=== PATIENT | male | born 1960 | race Asian ===

== ENCOUNTER 2016-07-25 13:22 | Outpatient (CLI) | payer OTHER | END 2016-07-25 13:23 | disposition home or self-care (01) | DX: G47.33 Obstructive sleep apnea (adult) (pediatric) (principal) ==

== ENCOUNTER 2016-09-06 15:22 | Outpatient (CLI) | payer OTHER | END 2016-09-06 15:23 | disposition home or self-care (01) | LOC: SC 15:22 | PROVIDERS: ATTEND Internal Medicine Pulmonary Disease | DX: G47.33 Obstructive sleep apnea (adult) (pediatric) (principal) | CPT/HCPCS: 99212; 99213 ==

== ENCOUNTER 2021-10-17 16:50 | Emergency (ER) | payer OTHER ==
[2021-10-17 17:01] VITALS: BP 148/92
[2021-10-17] MEDS ORDERED: COLCHICINE 0.6 MG TABLET PO STA (17:08)
[2021-10-17] MEDS ORDERED: oxyCODONE/ACET 5/325 Prepack 4 PO STA (17:08)
[2021-10-17] MEDS ORDERED: predniSONE 20 MG TABLET PO STA (17:08)
--- NOTE | 2021-10-17 17:14 | ED Physician Documentation ---
PD HPI LOWER EXT INJURY - Stated complaint Stated Complaint: GOUT - Chief complaint Chief Complaint: Ext Problem - History obtained from History obtained from: Patient (61-year-old gentleman with history of gout has had an ongoing flare of gout in his left first MTP the last few days despite taking colchicine. He is on long-term allopurinol therapy. No fevers.) Review of Systems Constitutional: reports: Reviewed and negative Eyes: reports: Reviewed and negative Respiratory: reports: Reviewed and negative PD PAST MEDICAL HISTORY - Present Medications Home Medications: Ambulatory Orders Medication Instructions Recorded Confirmed Colchicine [Colcrys] 0.6 mg PO BID #6 tablet 10/17/21 Oxycodone HCl/Acetaminophen 1 - 2 each PO Q6H PRN #14 tablet 10/17/21 [Percocet 5-325 mg Tablet] predniSONE [Deltasone] 20 mg PO [id number] #21 tab 10/17/21 - Allergies Allergies/Adverse Reactions: Allergies Allergy/AdvReac Type Severity Reaction Status Date / Time aspirin AdvReac Edema Verified 10/17/21 17:02 ibuprofen AdvReac Edema Verified 10/17/21 17:02 PD ED PE NORMAL - Vitals Vital signs reviewed: Yes - General General: Alert and oriented X 3, No acute distress - Extremities Extremities: Other (Redness and warmth at the left first MTP consistent with gout. No severe pain with passive range of motion.) - Neuro Neuro: Alert and oriented X 3, Normal speech Results - Vitals Vitals: Vital Signs - 24 hr 10/17/21 16:57 Temperature 36.9 C Heart Rate 86 Respiratory 16 Rate Blood Pressure 148/92 H O2 Saturation 97 Oxygen O2 Source Room air Departure - Departure Disposition: Home, Self Care Clinical Impression: Gout Qualifiers: Gout site: foot Gout etiology: unspecified cause Chronicity: acute Laterality: left Qualified Code(s): M10.9 - Gout, unspecified Condition: Good Record reviewed to determine appropriate education?: Yes Instructions: ED Arthritis Gout Prescriptions: Colchicine [Colcrys] 0.6 mg PO BID #6 tablet predniSONE [Deltasone] 20 mg PO [id number] #21 tab Oxycodone HCl/Acetaminophen [Percocet 5-325 mg Tablet] 1 - 2 each PO Q6H PRN #14 tablet PRN Reason: pain Comments: I sent your prescription electronically [place] the [facility] [place] Keep eye on your blood sugars, the prednisone may make your blood sugars go up and if that happens probably not worth it and can be stopped. Return for new or worsening symptoms. Follow-up with your doctor in a week for recheck.
== END 2021-10-17 17:35 | disposition home or self-care (01) ==
LOC: ED 16:50
DX: M10.9 Gout, unspecified (principal)
CPT/HCPCS: 99283; A9270; J7512

== ENCOUNTER 2022-01-25 09:29 | Emergency (ER) | payer OTHER ==
[2022-01-25 09:36] VITALS: BP 138/96
--- NOTE | 2022-01-25 10:09 | ED Physician Documentation ---
PD HPI LOWER EXT INJURY - Stated complaint Stated Complaint: L FOOT PX - Chief complaint Chief Complaint: Ext Problem - History obtained from History obtained from: Patient - History of Present Illness PD HPI LOW EXT INJURY LOCATION: Left, Foot, Toe Type of injury: Other (feels like gout flare up.). No: Fall, Twist, Blunt / blow Where injury occurred: Home Timing - onset: How many days ago (3-4) Timing - duration: Days Timing - details: Gradual onset, Still present Worsened by: Moving, Palpating Associated symptoms: Swelling, Discolored (red) Similar symptoms before: Diagnosis (feels like gout flares he has had. Not improved with colchicine the past few days. Had improvement with prednisone with flare up in September.) Review of Systems Constitutional: denies: Fever, Chills Nose: denies: Rhinorrhea / runny nose, Congestion Throat: denies: Sore throat Respiratory: denies: Cough GI: denies: Abdominal Pain, Nausea, Vomiting, Diarrhea Skin: reports: Rash (redness with swelling left great toe mtp and now also 3rd toe mtp dorsally.) Neurologic: denies: Focal weakness, Numbness PD PAST MEDICAL HISTORY - Past Medical History Past Medical History: Yes Cardiovascular: Hypertension, High cholesterol Respiratory: None Neuro: None Endocrine/Autoimmune: Type 2 diabetes GI: None : None HEENT: None Psych: None Musculoskeletal: Gout, Chronic back pain Derm: None - Past Surgical History Past Surgical History: No - Present Medications Home Medications: Ambulatory Orders Medication Instructions Recorded Confirmed Colchicine [Colcrys] 0.6 mg PO BID #6 tablet 10/17/21 01/25/22 Oxycodone HCl/Acetaminophen 1 - 2 each PO Q6H PRN #14 tablet 10/17/21 01/25/22 [Percocet 5-325 mg Tablet] Colchicine 0.6 mg PO TID PRN #20 tablet 01/25/22 Loratadine [Allergy Relief] 10 mg PO DAILY 01/25/22 01/25/22 Losartan Potassium 0 mg PO DAILY 01/25/22 01/25/22 Lovastatin 0 mg PO HS 01/25/22 01/25/22 Montelukast [Singulair] 10 mg PO QPM 01/25/22 01/25/22 allopurinoL [Zyloprim] 500 mg PO DAILY 01/25/22 01/25/22 metFORMIN [Glucophage] 500 mg PO BIDWM 01/25/22 01/25/22 predniSONE [Deltasone] 20 mg PO [id number] #21 tab 01/25/22 - Allergies Allergies/Adverse Reactions: Allergies Allergy/AdvReac Type Severity Reaction Status Date / Time aspirin AdvReac Edema Verified 01/25/22 09:36 ibuprofen AdvReac Edema Verified 01/25/22 09:36 - Social History Does the pt smoke?: No Smoking Status: Never smoker Does the pt drink ETOH?: Yes Does the pt have substance abuse?: No - Immunizations Immunizations are current?: Yes PD ED PE NORMAL - Vitals Vital signs reviewed: Yes - General General: Alert and oriented X 3, No acute distress (until palpation of the involved area. ), Well developed/nourished - Derm Derm: Normal color, Warm and dry - Extremities Extremities: Other (left great and 3rd toes with marked tenderness/redness at MTPs. No skin sores/breakdown. ) - Neuro Neuro: Alert and oriented X 3, No motor deficit, No sensory deficit, Normal speech Results - Vitals Vitals: Oxygen O2 Source Room air PD MEDICAL DECISION MAKING - ED course Complexity details: reviewed old records (prior visit for gout, and will give same prednisone course (10 day taper). ), considered differential, d/w patient Departure - Departure Disposition: 01 Home, Self Care Clinical Impression: Exacerbation of gout, Foot pain, left Condition: Stable Record reviewed to determine appropriate education?: Yes Follow-Up: [facility] [Provider Group] Prescriptions: Colchicine 0.6 mg PO TID PRN #20 tablet PRN Reason: Pain predniSONE [Deltasone] 20 mg PO [id number] #21 tab Comments: Continue with your colchicine 3 times daily. You can add the prednisone taper as previously taken on your last flareup. I wrote another prescription for that. Both of these prescriptions were sent to [facility] pharmacy. To that you can add Tylenol 500 to 650 mg 4 times daily for pain or your prior prescription oxycodone/acetaminophen if needed for worse pain. Recheck if not improving well over the next few days. Discharge Date/Time: 01/25/22 10:42
[2022-01-25] MEDS ORDERED: ACETAMINOPHEN 325 MG TABLET PO STA (10:27)
[2022-01-25] MEDS ORDERED: predniSONE 20 MG TABLET PO STA (10:27)
== END 2022-01-25 10:42 | disposition home or self-care (01) ==
LOC: ED 09:29
DX: M10.9 Gout, unspecified (principal)
CPT/HCPCS: 99282; 99283; A9270; J7512

== ENCOUNTER 2023-02-24 16:00 | Emergency (ER) | payer OTHER ==
[2023-02-24] MEDS ORDERED: DEXAMETHASONE 10 MG/ML VIAL PO STA (17:25)
[2023-02-24] MEDS ORDERED: CHERRY SYRUP 10 ML UDC PO ONE (17:25)
--- NOTE | 2023-02-24 17:35 | ED Physician Documentation ---
PD HPI URI - Stated complaint Stated Complaint: COUGH/SORE THROAT/CONGESTION - Chief complaint Chief Complaint: Resp - History obtained from History obtained from: Patient, Family - History of Present Illness Timing - onset: How many days ago (5) Timing duration: Days (5) Timing details: Gradual onset, Still present Associated symptoms: Sore throat, Productive cough, Other (ear pain) Contributing factors: Sick contact ( sick with similar) Improves by: Rest Similar symptoms before: Diagnosis (URI) Recently seen: Not recently seen - Additional information Additional information: Jovanny Powers is a 62-year-old male who is recently returned from the [facility] where he was on vacation during his vacation in the [facility] he began to develop cough and congestion and he has now returned has worsening of his cough and congestion and has pain in his ear as well as production of yellow-green phlegm. He indicates that he has this happen to him frequently when he is up for too long and worn out. He has had to be on antibiotic previously with this. He has had an operation to his right ear which has failed. Review of Systems Constitutional: denies: Fever Eyes: denies: Decreased vision Ears: reports: Ear pain Nose: reports: Rhinorrhea / runny nose, Congestion Throat: reports: Sore throat Cardiac: denies: Chest pain / pressure, Palpitations Respiratory: reports: Cough. denies: Dyspnea GI: denies: Vomiting, Diarrhea : denies: Dysuria, Frequency PD PAST MEDICAL HISTORY - Past Medical History Cardiovascular: Hypertension, High cholesterol Respiratory: None Neuro: None Endocrine/Autoimmune: Type 2 diabetes GI: None : None HEENT: None Psych: None Musculoskeletal: Gout, Chronic back pain Derm: None - Past Surgical History Past Surgical History: No - Present Medications Home Medications: Ambulatory Orders Medication Instructions Recorded Confirmed Colchicine [Colcrys] 0.6 mg PO BID #6 tablet 10/17/21 01/25/22 Oxycodone HCl/Acetaminophen 1 - 2 each PO Q6H PRN #14 tablet 10/17/21 01/25/22 [Percocet 5-325 mg Tablet] Colchicine 0.6 mg PO TID PRN #20 tablet 01/25/22 Loratadine [Allergy Relief] 10 mg PO DAILY 01/25/22 01/25/22 Losartan Potassium 0 mg PO DAILY 01/25/22 01/25/22 Lovastatin 0 mg PO HS 01/25/22 01/25/22 Montelukast [Singulair] 10 mg PO QPM 01/25/22 01/25/22 allopurinoL [Zyloprim] 500 mg PO DAILY 01/25/22 01/25/22 metFORMIN [Glucophage] 500 mg PO BIDWM 01/25/22 01/25/22 predniSONE [Deltasone] 20 mg PO [id number] #21 tab 01/25/22 Benzonatate [Tessalon] 100 - 200 mg PO TID PRN #30 cap 02/24/23 Cefdinir 300 mg PO BID #20 cap 02/24/23 - Allergies Allergies/Adverse Reactions: Allergies Allergy/AdvReac Type Severity Reaction Status Date / Time aspirin AdvReac Edema Verified 01/25/22 09:36 ibuprofen AdvReac Edema Verified 01/25/22 09:36 - Social History Does the pt smoke?: No Smoking Status: Never smoker Does the pt drink ETOH?: Yes Does the pt have substance abuse?: No - Immunizations Immunizations are current?: Yes PD ED PE NORMAL - Vitals Vital signs reviewed: Yes (hypertensive) - General General: Alert and oriented X 3, No acute distress, Well developed/nourished - HEENT HEENT: Atraumatic, PERRL, EOMI, Other (The right TM is centrally erythematous completely distorted and completely on recognizable. The left has mild erythema along the umbo. 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 parapertussis DNA (PCR) NOT DETECTED Nasal Coronavir 229E PCR NOT DETECTED Nasal Coronavir HKU1 PCR NOT DETECTED Nasal Coronavir NL63 PCR NOT DETECTED Nasal Coronavir OC43 PCR NOT DETECTED Nasal Enterovir/Rhinovir PCR DETECTED A Nasal Influenza B PCR NOT DETECTED Nasal Influenza A PCR NOT DETECTED Nasal Parainfluen 1 PCR NOT DETECTED Nasal Parainfluen 2 PCR NOT DETECTED Nasal Parainfluen 3 PCR NOT DETECTED Nasal Parainfluen 4 PCR NOT DETECTED Nasal RSV (PCR) NOT DETECTED Nasal B.pertussis DNA PCR NOT DETECTED Nasal C.pneumoniae (PCR) NOT DETECTED Tobin Human Metapneumo PCR NOT DETECTED Nasal M.pneumoniae (PCR) NOT DETECTED Nasal SARS-CoV-2 (PCR) NOT DETECTED PD Medical Decision Making - ED course Complexity details: reviewed results, re-evaluated patient, considered differential, d/w patient, d/w family ED course: 62-year-old male with cough and congestion bringing up a lot of phlegm has ev idence of otitis bilaterally on examination and he has had prior incidences of this with a very distorted right TM. His nasal swab is positive for enterovirus but he will need additional treatment for the otitis. He is administered a dose of dexamethasone and we will place him on a course of cefdinir as he is allergic to amox. Departure - Departure Disposition: 01 Home, Self Care Clinical Impression: Rhinovirus infection Upper respiratory tract infection Qualifiers: URI type: acute nasopharyngitis (common cold) Qualified Code(s): J00 - Acute nasopharyngitis [common cold] Otitis media Qualifiers: Otitis media type: suppurative Chronicity: acute Laterality: bilateral Recurrence: recurrent Spontaneous tympanic membrane rupture: without spontaneous rupture Qualified Code(s): H66.006 - Acute suppurative otitis media without spontaneous rupture of ear drum, recurrent, bilateral Condition: Stable Instructions: Cold Virus, ED Otitis Media Acute Adult Follow-Up: [facility] [Provider Group] Prescriptions: Cefdinir 300 mg PO BID #20 cap Benzonatate [Tessalon] 100 - 200 mg PO TID PRN #30 cap PRN Reason: Cough Comments: Jovanny, today it looks like your ears are infected and you do have the cold virus as well. The expectation is that the viral infection will resolve itself over the next several days and the ear infection will need additional treatment. I have E scribed some cefdinir (antibiotic) and some tesselon (cough suppressant) to the [facility] in [place]. Forms: PCP List Discharge Date/Time: 02/24/23 18:04
[2023-02-24 17:41] LABS: B. PARAPERTUSSIS- RESP PCR PAN NOT DETECTED; B. PERTUSSIS- RESP PCR PANEL NOT DETECTED; C. PNEUMONIAE- RESP PCR PANEL NOT DETECTED; CORONAVIRUS 229E-RESP PCR NOT DETECTED; CORONAVIRUS HKU1-RESP PCR NOT DETECTED; CORONAVIRUS NL63-RESP PCR NOT DETECTED; CORONAVIRUS OC43-RESP PCR NOT DETECTED; HUMAN METAPNEUMOVIRUS NOT DETECTED; INFLUENZA A- RESP PCR PANEL NOT DETECTED; INFLUENZA B - RESP PCR PANEL NOT DETECTED; M. PNEUMONIAE- RESP PCR PANEL NOT DETECTED; PARAINFLUENZA VIRUS 1 NOT DETECTED; PARAINFLUENZA VIRUS 2 NOT DETECTED; PARAINFLUENZA VIRUS 3 NOT DETECTED; PARAINFLUENZA VIRUS 4 NOT DETECTED; RHINOVIRUS/ENTEROVIRUS DETECTED; RSV- RESP PCR PANEL NOT DETECTED; SARS-CoV-2 -RESP PCR PANEL NOT DETECTED
[2023-02-24 18:09] VITALS: BP 140/82; O2SAT 100
== END 2023-02-24 18:04 | disposition home or self-care (01) ==
LOC: ED 16:00
DX: J00 Acute nasopharyngitis [common cold] (principal); H66.006 Acute suppurative otitis media without spontaneous rupture of ear drum, recurrent, bilateral; B34.8 Other viral infections of unspecified site
CPT/HCPCS: 87633; 99283; A9270